=== PATIENT | male | born 1995 | race Caucasian/White ===

== ENCOUNTER 2017-10-31 22:59 | Emergency (ER) | payer SELFPAY ==
[2017-11-01] MEDS ORDERED: Clindamycin CAP* 150 MG PO ONE (01:29)
--- NOTE | 2017-11-01 01:29 | ED ---
Throat Pain/Nasal Congestion - HPI Summary HPI Summary: 22-year-old male presents with dental pain for the past year. He states the pain increased today. Has been taking ibuprofen without relief. He states dentist told him he needs to remove 5 teeth but they only removed one. He states the area feels more swollen. He denies any fevers and denies any swelling around his eyes or pain with eye movement. He denies any chest pain or shortness of breath. - History of Current Complaint Chief Complaint: EDDentalPain Time Seen by Provider: 11/01/17 01:04 - Allergies/Home Medications Allergies/Adverse Reactions: Allergies Allergy/AdvReac Type Severity Reaction Status Date / Time Penicillins Allergy Hives Verified 10/31/17 23:09 PMH/Surg Hx/FS Hx/Imm Hx Endocrine/Hematology History: Denies: Hx Anticoagulant Therapy Cardiovascular History: Denies: Hx Myocardial Infarction Infectious Disease History: No Infectious Disease History: Denies: Traveled Outside the [place] in Last 30 Days - Family History Known Family History: Negative: Cardiac Disease - Social History Alcohol Use: None Substance Use Type: Reports: Marijuana Smoking Status (MU): Heavy Every Day Tobacco Smoker Review of Systems Negative: Fever Positive: Dental Pain Negative: Chest Pain Negative: Shortness Of Breath All Other Systems Reviewed And Are Negative: Yes Physical Exam Triage Information Reviewed: Yes Vital Signs On Initial Exam: Initial Vitals Temp Pulse Resp BP Pulse Ox 98.8 F 75 18 141/84 98 10/31/17 23:06 10/31/17 23:06 10/31/17 23:06 10/31/17 23:06 10/31/17 23:06 Vital Signs Reviewed: Yes Appearance: Positive: Well-Appearing Skin: Positive: Warm, Dry Head/Face: Positive: Normal Head/Face Inspection Eyes: Positive: Normal, EOMI, BREONNA, Conjunctiva Clear ENT: Positive: Normal ENT inspection, Pharynx normal, TMs normal Dental: Positive: Percussion Tenderness @ - 1, 2, Gross Decay/Caries @ - 1,2, Dental Fracture @ - 1,2 Neck: Positive: Supple, Nontender, No Lymphadenopathy Respiratory/Lung Sounds: Positive: Clear to Auscultation, Breath Sounds Present Cardiovascular: Positive: Normal, RRR Abdomen Description: Positive: Nontender, Soft Bowel Sounds: Positive: Present Musculoskeletal: Positive: Normal Neurological: Positive: Normal Psychiatric: Positive: Normal Diagnostics - Vital Signs Vital Signs Temp Pulse Resp BP Pulse Ox 10/31/17 23:06 98.8 F 75 18 141/84 98 - Laboratory Lab Statement: Any lab studies that have been ordered have been reviewed, and results considered in the medical decision making process. EENT Course/Dx - Course Course Of Treatment: 22-year-old male presents with dental pain for the past year. He states the pain increased today. Has been taking ibuprofen without relief. He states dentist told him he needs to remove 5 teeth but they only removed one. He states the area feels more swollen. He denies any fevers and denies any swelling around his eyes or pain with eye movement. He denies any chest pain or shortness of breath. On exam has fractures of 1 and 2 and to percussion. No abscess felt. Will start on clindamycin. We'll have follow-up with dentist. Patient understands agrees plan. - Differential Diagnoses Differential Diagnoses: Dental Abscess, Dental Caries, Fractured Tooth - Diagnoses Provider Diagnoses: Dental infection Discharge - Sign-Out/Discharge Documenting (check all that apply): Discharge - Discharge Plan Condition: Good Disposition: HOME Prescriptions: Chlorhexidine MOUTHWASH 0.12%* [Peridex Mouth Wash 0.12%*] 15 ml .SEE ORDER DAILY #1 oral.soln Clindamycin Cap(NF) [Clindamycin Cap 300 mg Cap(NF)] 300 mg PO TID #20 cap Patient Education Materials: Dental Abscess (ED) Referrals: No Primary Care Phys,NOPCP [Primary Care Provider] - Additional Instructions: Take antibiotics: three times a day for 7 days Use ibuprofen or tyenlol every 6 hours for pain Avoid hard, crunchy food until seen by dentist Return to ED if develop fever, shortness of breath, pain with eye movement or swelling around eye follow up with dentist as soon as possible - Billing Disposition and Condition Condition: GOOD Disposition: HOME Images - Images Dental: 1 - pain
[2017-11-01] MEDS ORDERED: oxyCODONE/Acetamin 5/325 MG* TAB PO ONE (01:53)
[2017-11-01 02:08] VITALS: BP 130/88
== END 2017-11-01 02:09 | disposition home or self-care (01) ==
LOC: ED 22:59
DX: K04.7 Periapical abscess without sinus (principal); K08.89 Other specified disorders of teeth and supporting structures; F17.210 Nicotine dependence, cigarettes, uncomplicated
CPT/HCPCS: 99282; A9270-GY